=== PATIENT | male | born 1995 | race Caucasian/White ===

== ENCOUNTER 2020-12-10 23:02 | Emergency (ER) | payer OTHER ==
[2020-12-10 23:40] LABS: BASOPHILS # (AUTO) 0.1 10^3/uL (0.0-0.1); BASOPHILS % (AUTO) 0.9 %; EOSINOPHILS # (AUTO) 0.5 10^3/uL (0.0-0.7); EOSINOPHILS % (AUTO) 6.6 %; HCT - HEMATOCRIT 44.1 % (42.0-52.0); LYMPHOCYTES # (AUTO) 1.8 10^3/uL (1.5-3.5); LYMPHOCYTES % (AUTO) 22.7 %; MEAN CORPUSCULAR HEMOGLOBIN 29.1 pg (27.0-31.0); MEAN CORPUSCULAR VOLUME 85.5 fL (80.0-94.0); MEAN PLATELET VOLUME 10.3 fL (7.4-11.4); MONOCYTES # (AUTO) 0.7 10^3/uL (0.0-1.0); MONOCYTES % (AUTO) 8.9 %; NEUTROPHILS # (AUTO) 4.8 10^3/uL (1.5-6.6); NEUTROPHILS % (AUTO) 60.6 %; PLT - PLATELET COUNT 277 10^3/uL (130-450); RED BLOOD COUNT 5.16 10^6/uL (4.70-6.10); RED CELL DISTRIBUTION WIDTH 11.9 % (12.0-15.0)
--- NOTE | 2020-12-10 23:44 | ED Physician Documentation ---
PD HPI CHEST PAIN - Stated complaint Stated Complaint: CP - Chief complaint Chief Complaint: Cardiac - History obtained from History obtained from: Patient - History of Present Illness Timing - onset: How many days ago (3) Timing - duration: Days Timing - details: Gradual onset, Waxing and waning Quality: Pressure, Pain Location: Left chest Radiation: Other (does not radiate) Improved by: Nothing Worsened by: Inspiration Associated symptoms: Shortness of air (mild), General Weakness. No: Diaphoresis, Nausea, Vomiting, Palpitations, Cough Similar symptoms before: Has not had sx before Recently seen: Not recently seen - Additional information Additional information: c/o left-sided chest pressure and pain associated with generalized weakness, fatigue, and mild shortness of breath. These symptoms started 3 days ago and have no ameliorating factors. The chest pain has a pleuritic component. Denies leg swelling. He had his first dose of COVID vaccination 3 days ago. He does not know which vaccination, but he says it was the first of two doses Review of Systems Constitutional: reports: Fatigue. denies: Fever, Chills, Sweats Cardiac: reports: Chest pain / pressure. denies: Palpitations, Pedal edema, Calf pain Respiratory: reports: Dyspnea (mild). denies: Cough, Hemoptysis, Wheezing GI: reports: Reviewed and negative Musculoskeletal: denies: Extremity swelling Neurologic: reports: Generalized weakness PD PAST MEDICAL HISTORY - Past Medical History Past Medical History: No - Allergies Allergies/Adverse Reactions: Allergies Allergy/AdvReac Type Severity Reaction Status Date / Time No Known Drug Allergies Allergy Verified 12/10/20 23:05 PD ED PE NORMAL - Vitals Vital signs reviewed: Yes - General General: Alert and oriented X 3, No acute distress, Well developed/nourished - Neck Neck: Supple, no meningeal sign - Cardiac Cardiac: RRR, No murmur, No gallop, No rub - Respiratory Respiratory: No respiratory distress, Clear bilaterally - Abdomen Abdomen: Soft, Non tender - Derm Derm: Normal color, Warm and dry - Extremities Extremities: No edema Results - Vitals Vitals: Vital Signs - 24 hr 12/10/20 12/11/20 12/11/20 23:05 01:10 02:38 Temperature 36.5 C 37.1 C Heart Rate 79 68 89 Respiratory 16 20 20 Rate Blood Pressure 158/82 H 145/98 H 148/64 H O2 Saturation 100 95 99 Oxygen O2 Source Room air - Labs Labs: Laboratory Tests 12/10/20 12/10/20 12/10/20 23:31 23:31 23:31 WBC 8.0 RBC 5.16 Hgb 15.0 Hct 44.1 MCV 85.5 MCH 29.1 MCHC 34.0 RDW 11.9 L Plt Count 277 MPV 10.3 Neut # (Auto) 4.8 Lymph # (Auto) 1.8 [place] # (Auto) 0.7 Eos # (Auto) 0.5 Baso # (Auto) 0.1 Absolute Nucleated RBC 0.00 Nucleated RBC % 0.0 Sodium 136 Potassium 3.4 L Chloride 98 L Carbon Dioxide 24 Anion Gap 14.0 H BUN 20 Creatinine 1.3 H Estimated GFR (MDRD) 68 L Glucose 90 Calcium 9.2 Total Bilirubin 0.9 AST 27 ALT 22 Alkaline Phosphatase 68 Troponin I High Sens 25.7 H* Total Protein 7.6 Albumin 4.7 Globulin 2.9 Albumin/Globulin Ratio 1.6 Lipase 30 - Rads (name of study) chest xray Radiology: Prelim report reviewed, See rad report PD MEDICAL DECISION MAKING - ED course Complexity details: reviewed results, re-evaluated patient, considered differential, d/w patient ED course: presents with left-sided chest pain x 3 days, pleuritic component. Mild dyspnea which is only noted on ROS (not offered by patient as part of HPI). He also endorses fatigue, generalized weakness x 3 days. Tonight's tests show minimal hypokalemia and mildly elevated creatinine with normal BUN. EKG does not demonstrate any acute nor concerning abnormalities. He has a minimally elevated troponin which, given his age and lack of risk factors for CAD, is likely incidental (ACS is not suspected given EKG findings, age, and lack of cardiac risk factors). CXR is unremarkable. Given the pleuritic component of his chest pain and reported mild dyspnea, CT chest with IV contrast performed. No PE nor pneumothorax on CT. There are multiple pulmonary nodules measuring up to 4mm; this is again likely an incidental finding and can be reevaluated in outpatient setting. Results d/w patient and he is instructed to return if worse, but to fo llow up with primary care provider next available appointment even if symptoms have resolved. Departure - Departure Disposition: 01 Home, Self Care Clinical Impression: Chest pain Condition: Good Instructions: ED Chest Pain Atypical Unkn Cause Follow-Up: ABHILASH Elliott [Provider Group] Comments: You had some abnormalities for which you should be reevaluated by your primary care provider. Your potassium is (minimally) below the normal range and your kidney test (creatinine) is minimally above the normal range. Additionally, the CT of your chest shows multiple, very small nodules. These are likely an incidental finding (not causing your symptoms), but should be reevaluated by your primary care provider. Further testing might be necessary. Discharge Date/Time: 12/11/20 02:46
[2020-12-10 23:50] LABS: ALBUMIN 4.7 g/dL (3.2-5.5); ALBUMIN/GLOBULIN RATIO 1.6 (1.0-2.2); BILIRUBIN,TOTAL 0.9 mg/dL (0.2-1.0); CALCIUM 9.2 mg/dL (8.5-10.3); CREATININE 1.3 mg/dL (0.6-1.2); POTASSIUM 3.4 mmol/L (3.5-5.0); TOTAL PROTEIN 7.6 g/dL (6.7-8.2)
[2020-12-11] MEDS ORDERED: SODIUM CHLORIDE 0.9% 1,000 ML IV STA (00:13)
[2020-12-11] MEDS ORDERED: IOPAMIDOL-300 100 ML VIAL ONE (00:20)
[2020-12-11] MEDS ORDERED: IOPAMIDOL-300 100 ML VIAL IVP ONE (01:10)
[2020-12-11 02:46] VITALS: BP 148/64
--- NOTE | 2020-12-11 07:52 | XRAY Report ---
PROCEDURE: Chest 1 View X-Ray INDICATIONS: Chest pain TECHNIQUE: One view of the chest was acquired. COMPARISON: Subsequent CT pulmonary angiogram 12/11/2020. FINDINGS: Surgical changes and devices: None. Lungs and pleura: No pleural effusions or pneumothorax. Lungs appear clear. Mediastinum: Mediastinal contours appear normal. Heart size is normal. Bones and chest wall: No suspicious bony lesions. Overlying soft tissues appear unremarkable. IMPRESSION: No acute cardiopulmonary abnormality. This report is concordant with the overnight preliminary interpretation. Reviewed by: Lucien Paz MD on 12/11/2020 6:51 AM TYLER Approved by: Lucien Paz MD on 12/11/2020 6:51 AM TYLER Station ID: [id number]
--- NOTE | 2020-12-11 08:01 | CT Report ---
PROCEDURE: ANGIO CHEST WITH CONTRAST INDICATIONS: left chest pain, pleuritic CONTRAST: IV CONTRAST: Isovue 300 ml: 100 PO CONTRAST: *NO PO CONTRAST TECHNIQUE: After the administration of intravenous contrast, images were acquired from the pulmonary apices to t he posterior costophrenic angles. 3-dimensional maximum intensity projection (MIP) coronal and sagit mitch reformats were then acquired through the thorax. For radiation dose reduction, the following was used: automated exposure control, adjustment of mA and/or kV according to patient size. COMPARISON: CXR earlier today. FINDINGS: Image quality: Good. Contrast bolus is delayed for optimal opacification of the pulmonary arteries. Pulmonary arteries: Pulmonary arteries are normal in size, and demonstrate no intraluminal filling d efects to suggest central pulmonary embolism. Lungs and pleura: No consolidation. Subtle groundglass nodular opacity in the left upper lobe, (7/117 , 119). A few small pulmonary nodules measuring is 0.4 cm or less. For example right upper lobe 0.4 c m, (7/123). Right lower lobe subpleural 0.3 cm, (7/208). No pleural effusions or pneumothorax. Cent ral and peripheral airways are patent. Mediastinum: Heart size is normal, without pericardial effusion. No mediastinal or hilar adenopathy . Thoracic aorta is normal in caliber and enhancement. No acute aortic syndrome. No aortic dissectio n. Esophagus is normal in caliber, without hiatal hernia. Bones and chest wall: No suspicious bony lesions. Ribs and thoracic spine appear intact throughout. No axillary or supraclavicular adenopathy. The thyroid is normal in size and there are no incident al findings. Abdomen: Visualized upper abdominal solid organs appear normal in the early arterial phase of enhanc ement. IMPRESSION: 1. No central pulmonary embolism. No acute aortic syndrome. 2. No pneumothorax. No pleural effusion. 3. A few small pulmonary nodules or nodular opacities measuring 0.4 cm or less. Suspect infectious/in flammatory nodules. This report is concordant with the overnight preliminary interpretation. Reviewed by: Lucien Paz MD on 12/11/2020 7:00 AM TYLER Approved by: Lucien Paz MD on 12/11/2020 7:00 AM TYLER Station ID: [id number]
== END 2020-12-11 02:46 | disposition home or self-care (01) ==
LOC: ED 23:02
DX: R07.89 Other chest pain (principal)
CPT/HCPCS: 36415; 71045; 71275; 80053; 83690; 84484; 85025; 93005; 96360; 99284; Q9967

== ENCOUNTER 2020-12-14 20:56 | Emergency (ER) | payer OTHER ==
[2020-12-14] MEDS ORDERED: DEXAMETHASONE 10 MG/ML VIAL PO STA (21:33)
[2020-12-14] MEDS ORDERED: CHERRY SYRUP 10 ML UDC PO ONE (21:33)
--- NOTE | 2020-12-14 21:37 | ED Physician Documentation ---
PD HPI CHEST PAIN - Stated complaint Stated Complaint: FATIGUE,ABD BURNING,CP/SOA - Chief complaint Chief Complaint: General - History obtained from History obtained from: Patient - History of Present Illness Timing - onset: How many days ago (4) Timing - onset during: Rest, Light activity Timing - duration: Days (4) Timing - details: Gradual onset, Still present, Waxing and waning Quality: Aching. 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 He is uncertain which vaccine he received Thinks it might be Pfizer.Since that time he has had some issue with some left-sided chest pain and shortness of breath. He indicates his pain is worse if he is exerting himself is worse if he takes a deep breath and he feels fatigued. He has coughed up some blood 4 days ago. He is not having persistent cough he feels hot but he has not had a fever. PD PAST MEDICAL HISTORY - Past Medical History Past Medical History: No Cardiovascular: None Respiratory: None Neuro: None Endocrine/Autoimmune: None GI: None : None HEENT: None Psych: None Musculoskeletal: None Derm: None - Past Surgical History Past Surgical History: No - Present Medications Home Medications: Ambulatory Orders Medication Instructions Recorded Confirmed No Known Home Medications 12/14/20 12/14/20 - Allergies Allergies/Adverse Reactions: Allergies Allergy/AdvReac Type Severity Reaction Status Date / Time No Known Drug Allergies Allergy Verified 12/14/20 21:12 - Social History Does the pt smoke?: No Smoking Status: Never smoker Does the pt drink ETOH?: Yes Does the pt have substance abuse?: No - Immunizations Immunizations are current?: Yes - POLST Patient has POLST: No PD ED PE NORMAL - Vitals Vital signs reviewed: Yes (hypertensive) - General General: Alert and oriented X 3, No acute distress, Well developed/nourished - HEENT HEENT: Atraumatic, PERRL, EOMI, Ears normal, Moist mucous membranes, Pharynx benign, Dentition benign - Neck Neck: Supple, no meningeal sign, No bony TTP - Cardiac Cardiac: RRR, No murmur - Respiratory Respiratory: No respiratory distress, Clear bilaterally - Abdomen Abdomen: Normal bowel sounds, Soft, Non tender, Non distended, No organomegaly - Back Back: No CVA TTP, No spinal TTP - Derm Derm: Normal color, Warm and dry, No rash - Extremities Extremities: No deformity, No edema - Neuro Neuro: Alert and oriented X 3, 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, No motor deficit, No sensory deficit, Normal speech Eye Opening: Spontaneous Motor: Obeys Commands Verbal: Oriented GCS Score: 15 - Psych Psych: Normal mood, Normal affect Results - Vitals Vitals: Vital Signs - 24 hr 12/14/20 12/14/20 20:59 21:11 Temperature 36.2 C L 36.2 C L Heart Rate 83 83 Respiratory 14 14 Rate Blood Pressure 147/81 H 147/81 H O2 Saturation 100 100 Oxygen O2 Source Room air - EKG (time done) 2102 Rate: Rate (enter#) (84) Rhythm: NSR Intervals: Other (short CT borderline) Compare to prior EKG: Unchanged from prior EKG (12-10-20 no changes) Computer interpretation: Agree with computer - Labs Labs: Laboratory Tests 12/14/20 12/14/20 12/14/20 21:36 21:36 21:36 WBC 9.5 RBC 4.88 Hgb 14.2 Hct 41.8 L MCV 85.7 MCH 29.1 MCHC 34.0 RDW 12.2 Plt Count 280 MPV 10.1 Neut # (Auto) 6.2 Lymph # (Auto) 2.2 [place] # (Auto) 0.6 Eos # (Auto) 0.5 Baso # (Auto) 0.1 Absolute Nucleated RBC 0.00 Nucleated RBC % 0.0 Sodium 140 Potassium 3.3 L Chloride 99 L Carbon Dioxide 30 Anion Gap 11.0 BUN 19 Creatinine 1.2 Estimated GFR (MDRD) 74 L Glucose 107 H Calcium 9.5 Total Bilirubin 0.6 AST 24 ALT 25 Alkaline Phosphatase 73 Troponin I High Sens 8.6 Total Protein 7.8 Albumin 4.7 Globulin 3.1 Albumin/Globulin Ratio 1.5 Lipase 32 Nasal Adenovirus (PCR) Nasal B. parapertussis DNA (PCR) Nasal Coronavir 229E PCR Nasal Coronavir HKU1 PCR Nasal Coronavir NL63 PCR Nasal Coronavir OC43 PCR Nasal Enterovir/Rhinovir PCR Nasal Influenza B PCR Nasal Influenza A PCR Nasal Parainfluen 1 PCR Nasal Parainfluen 2 PCR Nasal Parainfluen 3 PCR Nasal Parainfluen 4 PCR Nasal RSV (PCR) Nasal B.pertussis DNA PCR Nasal C.pneumoniae (PCR) Zoltan Human Metapneumo PCR Nasal M.pneumoniae (PCR) Nasal SARS-CoV-2 (PCR) 12/14/20 21:40 WBC RBC Hgb Hct MCV MCH MCHC RDW Plt Count MPV Neut # (Auto) Lymph # (Auto) [place] # (Auto) Eos # (Auto) Baso # (Auto) Absolute Nucleated RBC Nucleated RBC % Sodium Potassium Chloride Carbon Dioxide Anion Gap BUN Creatinine Estimated GFR (MDRD) Glucose Calcium Total Bilirubin AST ALT Alkaline Phosphatase Troponin I High Sens Total Protein Albumin Globulin Albumin/Globulin Ratio Lipase Nasal Adenovirus (PCR) NOT DETECTED Nasal B. parapertussis DNA (PCR) NOT DETECTED Nasal Coronavir 229E PCR NOT DETECTED Nasal Coronavir HKU1 PCR NOT DETECTED Nasal Coronavir NL63 PCR NOT DETECTED Nasal Coronavir OC43 PCR NOT DETECTED Nasal Enterovir/Rhinovir PCR NOT DETECTED Nasal Influenza B PCR NOT DETECTED Nasal Influenza A PCR NOT DETECTED Nasal Parainfluen 1 PCR NOT DETECTED Nasal Parainfluen 2 PCR NOT DETECTED Nasal Parainfluen 3 PCR NOT DETECTED Nasal Parainfluen 4 PCR NOT DETECTED Nasal RSV (PCR) NOT DETECTED Nasal B.pertussis DNA PCR NOT DETECTED Nasal C.pneumoniae (PCR) NOT DETECTED Zoltan Human Metapneumo PCR NOT DETECTED Nasal M.pneumoniae (PCR) NOT DETECTED Nasal SARS-CoV-2 (PCR) NOT DETECTED - Rads (name of study) chest Radiology: Prelim report reviewed (Impression: 1. No active process. Negative heart and lungs.), EMP read indepedently, See rad report PD MEDICAL DECISION MAKING - ED course Complexity details: reviewed old records, reviewed results, re-evaluated patient, considered differential, d/w patient ED course: 25-year-old male feeling fatigued short of breath and with chest pain after receiving his second dose of vaccination presents to the emergency department fo r the second time with persistent symptoms. On examination the patient appears otherwise well he has a heart rate of 84 and electrocardiogram showing a normal sinus rhythm. Normal ST segments. Here in the emergency department we will repeat his studies from the previous visit, check the PCR and administer dexamethasone. The conclusion of visit the patient feels normal. I suspect this is related to the use of dexamethasone. Departure - Departure Disposition: 01 Home, Self Care Clinical Impression: Adverse effect of COVID-19 vaccine Condition: Stable Instructions: ED Drug React Adverse Other Follow-Up: SHORTY HODGES DO [Primary Care Provider] - Comments: The recommendation for symptoms related to the Covid vaccine is to take Tylenol as often as every 4 hours and increase your level of fluids. Get plenty of rest and continue to be active.
[2020-12-14 21:40] LABS: BASOPHILS # (AUTO) 0.1 10^3/uL (0.0-0.1); BASOPHILS % (AUTO) 0.7 %; EOSINOPHILS # (AUTO) 0.5 10^3/uL (0.0-0.7); EOSINOPHILS % (AUTO) 5.2 %; HCT - HEMATOCRIT 41.8 % (42.0-52.0); HGB - HEMOGLOBIN 14.2 g/dL (14.0-18.0); LYMPHOCYTES # (AUTO) 2.2 10^3/uL (1.5-3.5); LYMPHOCYTES % (AUTO) 23.1 %; MEAN CORPUSCULAR HEMOGLOBIN 29.1 pg (27.0-31.0); MEAN CORPUSCULAR VOLUME 85.7 fL (80.0-94.0); MEAN PLATELET VOLUME 10.1 fL (7.4-11.4); MONOCYTES # (AUTO) 0.6 10^3/uL (0.0-1.0); MONOCYTES % (AUTO) 6.1 %; NEUTROPHILS # (AUTO) 6.2 10^3/uL (1.5-6.6); NEUTROPHILS % (AUTO) 64.7 %; PLT - PLATELET COUNT 280 10^3/uL (130-450); RED BLOOD COUNT 4.88 10^6/uL (4.70-6.10); RED CELL DISTRIBUTION WIDTH 12.2 % (12.0-15.0); WHITE BLOOD COUNT 9.5 x10^3/uL (4.8-10.8)
[2020-12-14 21:55] LABS: ALBUMIN 4.7 g/dL (3.2-5.5); ALBUMIN/GLOBULIN RATIO 1.5 (1.0-2.2); BILIRUBIN,TOTAL 0.6 mg/dL (0.2-1.0); CALCIUM 9.5 mg/dL (8.5-10.3); CREATININE 1.2 mg/dL (0.6-1.2); POTASSIUM 3.3 mmol/L (3.5-5.0); TOTAL PROTEIN 7.8 g/dL (6.7-8.2)
[2020-12-14 23:20] LABS: B. PARAPERTUSSIS- RESP PCR PAN NOT DETECTED; B. PERTUSSIS- RESP PCR PANEL NOT DETECTED; C. PNEUMONIAE- RESP PCR PANEL NOT DETECTED; CORONAVIRUS 229E-RESP PCR NOT DETECTED; CORONAVIRUS HKU1-RESP PCR NOT DETECTED; CORONAVIRUS NL63-RESP PCR NOT DETECTED; CORONAVIRUS OC43-RESP PCR NOT DETECTED; HUMAN METAPNEUMOVIRUS NOT DETECTED; INFLUENZA A- RESP PCR PANEL NOT DETECTED; INFLUENZA B - RESP PCR PANEL NOT DETECTED; M. PNEUMONIAE- RESP PCR PANEL NOT DETECTED; PARAINFLUENZA VIRUS 1 NOT DETECTED; PARAINFLUENZA VIRUS 2 NOT DETECTED; PARAINFLUENZA VIRUS 3 NOT DETECTED; PARAINFLUENZA VIRUS 4 NOT DETECTED; RHINOVIRUS/ENTEROVIRUS NOT DETECTED; RSV- RESP PCR PANEL NOT DETECTED; SARS-CoV-2 -RESP PCR PANEL NOT DETECTED
[2020-12-15 00:24] VITALS: BP 135/72
--- NOTE | 2020-12-15 12:50 | XRAY Report ---
PROCEDURE: Chest 1 View X-Ray INDICATIONS: chest pain TECHNIQUE: One view of the chest was acquired. COMPARISON: Chest x-ray 12/10/2020 FINDINGS: Surgical changes and devices: None. Lungs and pleura: No pleural effusions or pneumothorax. Lungs are clear. Mediastinum: Mediastinal contours appear normal. Heart size is normal. Bones and chest wall: No suspicious bony lesions. Overlying soft tissues appear unremarkable. IMPRESSION: No acute pulmonary process. The above findings are concordant with preliminary report. Reviewed by: Marycruz Wilson MD on 12/15/2020 12:49 PM PDT Approved by: Marycruz Wilson MD on 12/15/2020 12:49 PM PDT Station ID: [id number]
== END 2020-12-15 00:23 | disposition home or self-care (01) ==
LOC: ED 20:56
DX: R07.89 Other chest pain (principal); R06.02 Shortness of breath; R53.83 Other fatigue; T50.B95A Adverse effect of other viral vaccines, initial encounter; Z20.822 Contact with and (suspected) exposure to COVID-19
CPT/HCPCS: 0202U; 36415; 71045; 80053; 83690; 84484; 85025; 93005; 99283; 99284; A9270

== ENCOUNTER 2021-04-12 08:00 | Outpatient (CLI) | payer OTHER | END 2021-04-12 23:59 | LOC: LAB 08:00 | PROVIDERS: ATTEND Family Medicine | DX: R07.0 Pain in throat (principal); M79.10 Myalgia, unspecified site; Z20.822 Contact with and (suspected) exposure to COVID-19 | CPT/HCPCS: 87275; 87276 ==

== ENCOUNTER 2021-04-12 22:51 | Emergency (ER) | payer OTHER ==
[2021-04-12] MEDS ORDERED: ACETAMINOPHEN 325 MG TABLET PO STA (23:17)
[2021-04-13 01:48] LABS: B. PARAPERTUSSIS- RESP PCR PAN NOT DETECTED; B. PERTUSSIS- RESP PCR PANEL NOT DETECTED; C. PNEUMONIAE- RESP PCR PANEL NOT DETECTED; CORONAVIRUS 229E-RESP PCR NOT DETECTED; CORONAVIRUS HKU1-RESP PCR NOT DETECTED; CORONAVIRUS NL63-RESP PCR NOT DETECTED; CORONAVIRUS OC43-RESP PCR NOT DETECTED; HUMAN METAPNEUMOVIRUS NOT DETECTED; INFLUENZA A- RESP PCR PANEL NOT DETECTED; INFLUENZA B - RESP PCR PANEL NOT DETECTED; M. PNEUMONIAE- RESP PCR PANEL NOT DETECTED; PARAINFLUENZA VIRUS 1 NOT DETECTED; PARAINFLUENZA VIRUS 2 NOT DETECTED; PARAINFLUENZA VIRUS 3 NOT DETECTED; PARAINFLUENZA VIRUS 4 NOT DETECTED; RHINOVIRUS/ENTEROVIRUS NOT DETECTED; RSV- RESP PCR PANEL NOT DETECTED; SARS-CoV-2 -RESP PCR PANEL NOT DETECTED
--- NOTE | 2021-04-13 02:31 | ED Physician Documentation ---
History of Present Illness - Stated complaint Stated Complaint: SOA,BACK/CHEST PX - Chief complaint Chief Complaint: Resp - History obtained from History obtained from: Patient - Additonal information Additional information: 25yM, previously healthy p/w cough, sore throat, progressive dyspnea, fever/chills X 3 days. he was seen 04/12 and given amox rx for strep throat. presents today for worsening soa. denies hemoptysis, n/v/d cp or leg swelling Review of Systems Ten Systems: 10 systems reviewed and negative Constitutional: reports: Fever, Chills, Myalgias, Fatigue Throat: reports: Sore throat Cardiac: denies: Chest pain / pressure Respiratory: reports: Dyspnea, Cough PD PAST MEDICAL HISTORY - Past Medical History Past Medical History: Yes Cardiovascular: None Respiratory: None Neuro: None Endocrine/Autoimmune: None GI: None : None HEENT: None Psych: None Musculoskeletal: None Derm: None - Past Surgical History Past Surgical History: No - Present Medications Home Medications: Ambulatory Orders Medication Instructions Recorded Confirmed No Known Home Medications 12/14/20 04/12/21 - Allergies Allergies/Adverse Reactions: Allergies Allergy/AdvReac Type Severity Reaction Status Date / Time No Known Drug Allergies Allergy Verified 04/12/21 23:13 - Social History Does the pt smoke?: No Smoking Status: Never smoker Does the pt drink ETOH?: Yes Does the pt have substance abuse?: No - Immunizations Immunizations are current?: Yes - POLST Patient has POLST: No PD ED PE NORMAL - Vitals Vital signs reviewed: Yes - General General: Alert and oriented X 3, No acute distress, Well developed/nourished, Other (sleeping comfortably but easily arousable) - HEENT HEENT: Atraumatic, PERRL, EOMI, Other (mild posterior pharyngeal erythema) - Neck Neck: Supple, no meningeal sign - Cardiac Cardiac: RRR - Respiratory Respiratory: No respiratory distress, Clear bilaterally - Abdomen Abdomen: Non tender, Non distended - Derm Derm: Normal color, Warm and dry - Extremities Extremities: No deformity - Neuro Neuro: Alert and oriented X 3, No motor deficit, No sensory deficit - Psych Psych: Normal mood, Normal affect Results - Vitals Vitals: Vital Signs - 24 hr 04/12/21 04/13/21 23:10 01:01 Temperature 38.0 C H 37.2 C Heart Rate 101 H 84 Respiratory 17 28 H Rate Blood Pressure 151/78 H 126/64 O2 Saturation 98 97 Oxygen O2 Source Room air - Labs Labs: Laboratory Tests 04/13/21 00:50 Nasal Adenovirus (PCR) NOT DETECTED Nasal B. parapertussis DNA (PCR) NOT DETECTED Nasal Coronavir 229E PCR NOT DETECTED Nasal Coronavir HKU1 PCR NOT DETECTED Nasal Coronavir NL63 PCR NOT DETECTED Nasal Coronavir OC43 PCR NOT DETECTED Nasal Enterovir/Rhinovir PCR NOT DETECTED Nasal Influenza B PCR NOT DETECTED Nasal Influenza A PCR NOT DETECTED Nasal Parainfluen 1 PCR NOT DETECTED Nasal Parainfluen 2 PCR NOT DETECTED Nasal Parainfluen 3 PCR NOT DETECTED Nasal Parainfluen 4 PCR NOT DETECTED Nasal RSV (PCR) NOT DETECTED Nasal B.pertussis DNA PCR NOT DETECTED Nasal C.pneumoniae (PCR) NOT DETECTED Zoltan Human Metapneumo PCR NOT DETECTED Nasal M.pneumoniae (PCR) NOT DETECTED Nasal SARS-CoV-2 (PCR) NOT DETECTED PD MEDICAL DECISION MAKING - ED course ED course: 25yM p/w symptoms concerning for acute viral infection, but with negative RVP. He does state he tested positive for strep throat and is on amox. encouraged him to finish the antibiotic course but to consider being retested for covid at the 5 day alisha, since he has had only 3 days of symptoms and this could be a false negative. strict return precautions discussed. symptomatic care discussed. plan to f/u with pmd. Departure - Departure Disposition: 01 Home, Self Care Clinical Impression: Cough, Shortness of breath, Strep throat, Upper respiratory tract infection Condition: Good Instructions: ED Dyspnea Shortness of Breath Comments: You were seen in the emergency department for evaluation of shortness of breath and cough. Your covid test came back negative, but you should get retested in a few days if you are still having symptoms. Your vital signs and exam were normal. Please continue your antibiotics and return to the ED if you have new or worsening symptoms or other concerns.
[2021-04-13 02:37] VITALS: BP 125/62
== END 2021-04-13 02:45 | disposition home or self-care (01) ==
LOC: ED 22:51
DX: J02.0 Streptococcal pharyngitis (principal); R05.9 Cough, unspecified; R06.02 Shortness of breath; Z20.822 Contact with and (suspected) exposure to COVID-19
CPT/HCPCS: 0202U; 93005; 99282; 99283; A9270; 87275; 87276

== ENCOUNTER 2021-05-09 01:14 | Emergency (ER) | payer OTHER ==
[2021-05-09] MEDS ORDERED: KETOROLAC 30 MG/ML VIAL IM STA (01:37)
[2021-05-09] MEDS ORDERED: oxyCODONE 5 MG TABLET PO STA (01:37)
[2021-05-09] MEDS ORDERED: oxyCODONE/ACET 5/325 Prepack 4 PO STA (01:39)
--- NOTE | 2021-05-09 01:40 | ED Physician Documentation ---
PD HPI LOWER EXT INJURY - Stated complaint Stated Complaint: LEFT KNEE SWELLING, LEFT FOOT PAIN - Chief complaint Chief Complaint: Ext Problem - History obtained from History obtained from: Patient - History of Present Illness PD HPI LOW EXT INJURY LOCATION: Left, Knee, Other (and dorsum right foot.) Type of injury: No: Fall, Twist Timing - duration: Days (2) Timing - details: Gradual onset, Still present Improved by: No: Rest, Meds (took Ibuprofen at home) Worsened by: Moving, Palpating Associated symptoms: Swelling. No: Weakness, Numbness Recently seen: Clinic (2 days ago (Sunday) at [facility] for some penile irritation and was tested for GC/chlamydia and given IM Rocephin and PO Zithromax (5 days course). Working out hard at gym that day and the next and had onset of left knee and right foot swelling/pain that has increased.) Review of Systems Constitutional: denies: Fever, Chills, Myalgias Eyes: reports: Discharge (he states some matting of eye yesterday morning. No ongoing discharge. Does not wear contacts, just glasses.), Irritation Nose: denies: Rhinorrhea / runny nose, Congestion Throat: denies: Sore throat GI: denies: Abdominal Pain, Nausea, Vomiting : reports: Dysuria (several days ago and seen in [facility] with STI test obtained. Expecting results tomorrow.), Frequency. denies: Discharge Skin: denies: Rash, Lesions Neurologic: denies: Generalized weakness, Headache PD PAST MEDICAL HISTORY - Past Medical History Past Medical History: No Cardiovascular: None Respiratory: None Neuro: None Endocrine/Autoimmune: None GI: None : None HEENT: None Psych: None Musculoskeletal: None, Other (denies history of gout) Derm: None - Past Surgical History Past Surgical History: No - Present Medications Home Medications: Ambulatory Orders Medication Instructions Recorded Confirmed Naproxen 500 mg PO BID #20 tab.sr 05/09/21 Oxycodone HCl/Acetaminophen 1 each PO Q6H PRN #15 tablet 05/09/21 [Percocet 5-325 mg Tablet] - Allergies Allergies/Adverse Reactions: Allergies Allergy/AdvReac Type Severity Reaction Status Date / Time No Known Drug Allergies Allergy Verified 05/09/21 01:22 - Living Situation Living Arrangement: reports: At home - Social History Does the pt smoke?: No Smoking Status: Never smoker Does the pt drink ETOH?: Yes ETOH Use: Other (he states drinks regularly, usually beer, but none for the past 4 days. Denies withdrawal symtpoms.) Does the pt have substance abuse?: No - Immunizations Immunizations are current?: Yes - POLST Patient has POLST: No PD ED PE NORMAL - Vitals Vital signs reviewed: Yes - General General: Alert and oriented X 3, Well developed/nourished, Other (seems in pain due to knee, with any motion) - HEENT HEENT: PERRL, EOMI, Other (mild hyperemia both eyes, without conjunctival redness nor discharge. ) - Neck Neck: Supple, no meningeal sign, No adenopathy - Cardiac Cardiac: RRR, No murmur - Respiratory Respiratory: Clear bilaterally - Derm Derm: Normal color, Warm and dry - Extremities Extremities: No calf tenderness / cord, Other (right foot with swelling and mild redness dorsum. Very tender. No skin lesions. Great toe base normal. Left knee with large effusion, no redness nor warmth. Generally markedly tender. Ligament testing unobtainable due to tenderness. ) - Neuro Neuro: Alert and oriented X 3, No motor deficit, No sensory deficit Results - Vitals Vitals: Vital Signs - 24 hr 05/09/21 01:19 Temperature 36.9 C Heart Rate 88 Respiratory 17 Rate Blood Pressure 146/87 H O2 Saturation 100 Oxygen O2 Source Room air - Labs Labs: Microbiology 05/09/21 02:26 Gram Stain - Final Synovial Fluid Laboratory Tests 05/09/21 05/09/21 02:26 02:26 Fluid Source SYNOVIAL Fluid Color YELLOW Fluid Clarity CLEAR Fluid WBC 3310 Fluid RBC 3000 Fluid Crystals NONE SEEN - Rads (name of study) left knee Radiology: Prelim report reviewed (general arthritic changes. faint lucency lateral femoral condyle, possible osteocondral defect. ), See rad report right foot Radiology: Prelim report reviewed (no bony abnormality), See rad report Procedures - Arthrocentesis Joint: Knee, Left Preparation: Consent obtained (verbal), Sterile prep and drape, Other (left medial knee approach.) Anesthesia: Lidocaine 1% Fluid: Sent for cell count, Cloudy, Sent for crystals, Sent for culture, Fluid obtained - cc (38), Sent for gram stain Aftercare: Dressing applied, No complications, Patient tolerated well PD MEDICAL DECISION MAKING - ED course Complexity details: reviewed results (RBC 3K, WBC 3K indicating inflammatory or septic arthritis. Gram stain without organisms. Culture pending. I looked for his STI results, but not in the lab results, so presume results not received as yet. ), re-evaluated patient (feels improved pain in knee after arthrocentesis and meds. ), considered differential (consider overuse injury with pain/swelling, but interesting to be knee and foot. Consider new onset gout subsequent to minor injury. Recently seen for urinary symptoms and GC/Chlamydia test pending. Knee does not appear septic. Can tap joint to decrease symptoms and also for diagnostics. ), d/w patient Departure - Departure Disposition: 01 Home, Self Care Clinical Impression: Knee effusion, left Knee pain, acute Qualifiers: Laterality: left Qualified Code(s): M25.562 - Pain in left knee Acute foot pain Qualifiers: Laterality: right Qualified Code(s): M79.671 - Pain in right foot Condition: Stable Record reviewed to determine appropriate education?: Yes Instructions: ED Effusion Knee Follow-Up: LEANN BECKER MD [Primary Care Provider] - Prescriptions: Naproxen 500 mg PO BID #20 tab.sr Oxycodone HCl/Acetaminophen [Percocet 5-325 mg Tablet] 1 each PO Q6H PRN #15 tablet PRN Reason: pain Comments: Considerations for your symptoms would be overuse inflammation of the knee and foot from working out. This could have led to tendinitis of the foot and some inflammation of the ligaments or cartilage in the knee with subsequent swelling. Other consideration would be inflammation in those joints from uric acid crystals or calcium oxalate (gout or pseudogout). The testing at the lab off of the fluid should help distinguish if this looks like gout. The medication reference that I use called Epocrates does not list joint inflammation as a side effect from the antibiotic you are taking (Zithromax). The knee joint does not look red or feel hot and the fluid out did not look purulent per se so it does not seem like a joint infection. We will culture the fluid from the knee to see if there is any growth of bacteria. At this point I would suggest resting elevate and Alexys wrap for the knee and foot to help reduce swelling. Crutches to have partial to no weightbearing on the left knee to help reduce pain. Obviously that will still put pressure on the right foot so minimal walking and being off work for 2 to 3 days makes sense. Naproxen anti-inflammatory twice daily with food for the next week. To that add Tylenol every 4 hours if needed for pain or oxycodone/acetaminophen instead if needed for worse pain. Follow-up with your primary care in the next couple of days for recheck and also a follow-up on your recent other tests. They can also follow-up on the synovial fluid test we initiated tonight. We would call you with any significant findings or positive cultures but still good to have your primary care follow up as well. I transmitted the prescriptions to the [facility] pharmacy. I am prescribing a short course of narcotic pain medication for you. These are potentially dangerous and addictive medications that should be used carefully. These medications may constipate you. Take an [id number] stool softener such as docusate twice daily with plenty of water while taking these medications. If you go 24 hours without a bowel movement, take [id number] MiraLAX, per package instructions. Do not drink or drive while taking these medications. If you received narcotic or sedating medications while in the emergency department do not drive for 24 hours. Store this medication in a safe, secure place and out of reach of children. It is a violation of federal law to give or sell this medication to another person or to use in a manner other than prescribed. The ED will not refill narcotic prescriptions, including prescriptions lost or stolen. You can dispose of unwanted medications at the [facility] office or at several pharmacies such as [facility]. Forms: Activity restrictions
[2021-05-09 02:42] LABS: BF CLARITY CLEAR; BF COLOR YELLOW; BF SOURCE SYNOVIAL; CC,BF RBC 3000 /mm^3; CC,BF WBC 3310 /mm^3
[2021-05-09 03:09] LABS: LYMPHOCYTES %,BODY FLUID 63 %; MONOCYTES %,BODY FLUID 17 %; NEUTROPHILS %, BF 20 %
[2021-05-09 03:18] VITALS: BP 141/63
--- NOTE | 2021-05-09 07:59 | XRAY Report ---
PROCEDURE: Foot 3 View RT INDICATIONS: foot pain 2 days after running TECHNIQUE: 3 views of the foot were acquired. COMPARISON: None. FINDINGS: Bones: No fractures or dislocations. No suspicious bony lesions. Soft tissues: No tibiotalar joint effusion. Achilles tendon appears normal. Mild swelling at the d istal plantar soft tissues. No radiopaque foreign body. IMPRESSION: No acute osseous abnormality. Mild swelling at the distal plantar soft tissues. This report is concordant with the overnight preliminary interpretation. Reviewed by: Lucien Paz MD on 05/09/2021 7:58 AM [facility] Approved by: Lucien Paz MD on 05/09/2021 7:58 AM [facility] Station ID: [id number]
--- NOTE | 2021-05-09 08:03 | XRAY Report ---
PROCEDURE: Knee 3 View LT INDICATIONS: knee pain 2 days after running TECHNIQUE: 4 views of the left knee(s) were acquired. COMPARISON: None. FINDINGS: Bones: No fractures or dislocations. No suspicious bony lesions. There is tricompartmental osteophy tosis. Soft tissues: Large suprapatellar joint effusion. No suspicious soft tissue calcifications. IMPRESSION: Moderate tricompartmental osteoarthritis. Early onset. Large joint effusion. Subtle lucency at the lateral femoral condyle articular surface. This could be seen in osteochondral defect. MRI knee would be helpful for further evaluation. This report is concordant with the overnight preliminary interpretation. Reviewed by: Lucien Paz MD on 05/09/2021 8:01 AM [facility] Approved by: Lucien Paz MD on 05/09/2021 8:01 AM [facility] Station ID: [id number]
== END 2021-05-09 03:31 | disposition home or self-care (01) ==
LOC: EDUNIT# → SUPCPDRO 01:14 → ED 01:14
DX: M25.462 Effusion, left knee (principal); M79.671 Pain in right foot
CPT/HCPCS: 20610; 73562; 73630; 87070; 87205; 89051; 89060; 96372; 99282; 99284; A9270; 87081

== ENCOUNTER 2021-05-11 13:59 | Emergency (ER) | payer OTHER ==
[2021-05-11 14:09] VITALS: BP 149/82
[2021-05-11] MEDS ORDERED: CHERRY SYRUP 10 ML UDC PO ONE (14:34)
[2021-05-11] MEDS ORDERED: DEXAMETHASONE 10 MG/ML VIAL PO STA (14:34)
[2021-05-11] MEDS ORDERED: KETOROLAC 60 MG/2 ML VIAL IM STA (14:35)
--- NOTE | 2021-05-11 14:37 | ED Physician Documentation ---
PD HPI LOWER EXT INJURY - Stated complaint Stated Complaint: R KNEE SWELLING - Chief complaint Chief Complaint: Ext Problem - History obtained from History obtained from: Patient - History of Present Illness PD HPI LOW EXT INJURY LOCATION: Right, Left, Knee Type of injury: Other (overuse) Where injury occurred: Street Timing - onset: How many days ago (4) Timing - duration: Days (4) Timing - details: Abrupt onset, Still present Improved by: Rest, Ice, Immobilization Worsened by: Moving, Palpating Associated symptoms: Swelling. No: Weakness, Numbness, Tingling, Discolored Contributing factors: No: Anticoagulated Similar symptoms before: Diagnosis (reactive arthritis) Recently seen: Emergency Dept - Additional information Additional information: 26-year-old male reports that several days ago he went on a 2 mile run followed by a stent on the elliptical and then followed by the treadmill at a intense incline. The following day he developed marked swelling in his left knee. He was seen in the emergency department had fluid removed from the knee with a reactive inflammatory fluid that has been culture negative x2 days. He has some relief with the pain medication but he really feels like he needs an MRI of his knee and he has come to the ED to get this study. Review of Systems Constitutional: denies: Fever Ears: denies: Ear pain Nose: denies: Congestion Throat: denies: Sore throat Respiratory: denies: Cough GI: denies: Vomiting PD PAST MEDICAL HISTORY - Past Medical History Cardiovascular: None Respiratory: None Neuro: None Endocrine/Autoimmune: None GI: None : None HEENT: None Psych: None Musculoskeletal: None, Other (denies history of gout) Derm: None - Past Surgical History Past Surgical History: No - Present Medications Home Medications: Ambulatory Orders Medication Instructions Recorded Confirmed Naproxen 500 mg PO BID #20 tab.sr 05/09/21 Oxycodone HCl/Acetaminophen 1 each PO Q6H PRN #15 tablet 05/09/21 [Percocet 5-325 mg Tablet] Oxycodone HCl/Acetaminophen 1 - 2 each PO Q6H PRN #14 tablet 05/11/21 [Percocet 5-325 mg Tablet] predniSONE [Deltasone] 40 mg PO DAILY 5 Days #10 tablet 05/11/21 - Allergies Allergies/Adverse Reactions: Allergies Allergy/AdvReac Type Severity Reaction Status Date / Time No Known Drug Allergies Allergy Verified 05/11/21 14:08 - Social History Does the pt smoke?: No Smoking Status: Never smoker Does the pt drink ETOH?: Yes Does the pt have substance abuse?: No - Immunizations Immunizations are current?: Yes - POLST Patient has POLST: No PD ED PE NORMAL - Vitals Vital signs reviewed: Yes (tachy and hypertensive ) - General General: Alert and oriented X 3, No acute distress, Well developed/nourished, Other (26y/o male with an ice bag to the left knee and a cardboard splint placed around the right knee. ) - HEENT HEENT: Atraumatic, PERRL, EOMI - Respiratory Respiratory: No respiratory distress - Derm Derm: Normal color, Warm and dry, No rash - Extremities Extremities: No deformity, Other (There is swelling and point tenderness to the medial and lateral joint line to the left knee as well as a palpable effusion that is also tender. Ligaments are stable to testing the patient is able to move the knee but with significant pain. Right knee with less swelling stable. ) - Neuro Neuro: Alert and oriented X 3, swimming pool maintenance 2-12 intact, No motor deficit, No sensory deficit, Normal speech Eye Opening: Spontaneous Motor: Obeys Commands Verbal: Oriented GCS Score: 15 - Psych Psych: Normal mood, Normal affect Results - Vitals Vitals: Vital Signs - 24 hr 05/11/21 14:03 Temperature 36.6 C Heart Rate 107 H Respiratory 16 Rate Blood Pressure 149/82 H O2 Saturation 98 Oxygen O2 Source Room air PD MEDICAL DECISION MAKING - ED course Complexity details: reviewed results, re-evaluated patient, considered differential, d/w patient ED course: 26-year-old male who has a prior history of meniscus injury to both of his knees has excessively used his legs and now has inflammatory synovium. He really feels like he needs to have MRI of his knee this was ordered and they were unable to provide the service today as the intensive care unit had a patient requiring MRI. The patient was disappointed in this and he will attempt to get this study done soon. He was placed into a knee immobilizer for his right knee. He was given a dose of decadron and we will place him on a short course of prednisone. Departure - Departure Disposition: 01 Home, Self Care Clinical Impression: Knee pain, acute Qualifiers: Laterality: bilateral Qualified Code(s): M25.561 - Pain in right knee Condition: Stable Instructions: ED Meniscal Injury Knee Poss, ED Effusion Knee Follow-Up: Andrea Avila MD [Provider Admit Priv/Credential] - [facility] [Provider Group] Prescriptions: predniSONE [Deltasone] 40 mg PO DAILY 5 Days #10 tablet Oxycodone HCl/Acetaminophen [Percocet 5-325 mg Tablet] 1 - 2 each PO Q6H PRN #14 tablet PRN Reason: pain Discharge Date/Time: 05/11/21 16:35
== END 2021-05-11 16:35 | disposition home or self-care (01) ==
LOC: ED 13:59
DX: M25.561 Pain in right knee (principal)
CPT/HCPCS: 96372; 99282; 99283; A9270

== ENCOUNTER 2021-05-13 16:29 | Emergency (ER) | payer OTHER ==
--- NOTE | 2021-05-13 17:54 | ED Physician Documentation ---
PD HPI CHEST PAIN - Stated complaint Stated Complaint: CHEST PX - Chief complaint Chief Complaint: Cardiac - History obtained from History obtained from: Patient - History of Present Illness Timing - onset: How many days ago (2 1/2) Timing - onset during: Rest. No: Exertion Timing - duration: Days Timing - details: Gradual onset, Intermittant Quality: Aching, Pain. No: Tearing Location: Substernal, Epigastric Radiation: No: Jaw, Neck Improved by: No: Rest Worsened by: Eating, Palpation (epigastric area). No: Inspiration Associated symptoms: Nausea. No: Shortness of air, Vomiting, Feeling faint / dizzy, Palpitations Similar symptoms before: Has not had sx before Recently seen: Clinic, Emergency Dept (has had knees and foot pain and being treated for inflammatory arthritis vs gout vs other process. NSAIDs initially, then steroids, with Percocet PRN but he says not taking it very often. Occ Tylenol but not regularly.) Review of Systems Constitutional: denies: Fever, Chills Nose: denies: Rhinorrhea / runny nose, Congestion Throat: denies: Sore throat Cardiac: reports: Chest pain / pressure (more so is in epigastric area, worse with eating.) Respiratory: denies: Cough GI: reports: Abdominal Pain (epigastric), Nausea. denies: Vomiting, Diarrhea, Bloody / black stool Skin: denies: Abrasion (s), Laceration (s) PD PAST MEDICAL HISTORY - Past Medical History Cardiovascular: None Respiratory: None Neuro: None Endocrine/Autoimmune: None GI: None : None HEENT: None Psych: None Musculoskeletal: None, Other (denies history of gout) Derm: None - Past Surgical History Past Surgical History: No - Present Medications Home Medications: Ambulatory Orders Medication Instructions Recorded Confirmed Naproxen 500 mg PO BID #20 tab.sr 05/09/21 Oxycodone HCl/Acetaminophen 1 each PO Q6H PRN #15 tablet 05/09/21 [Percocet 5-325 mg Tablet] Oxycodone HCl/Acetaminophen 1 - 2 each PO Q6H PRN #14 tablet 05/11/21 [Percocet 5-325 mg Tablet] predniSONE [Deltasone] 40 mg PO DAILY 5 Days #10 tablet 05/11/21 Acetaminophen [Acetaminophen Extra 500 mg PO QID PRN #50 tablet 05/13/21 Strength] Famotidine [Pepcid] 20 mg PO DAILY #20 tablet 05/13/21 Lidocaine Viscous 2% [Xylocaine 5 ml PO Q4H PRN #100 ml 05/13/21 Viscous 2%] - Allergies Allergies/Adverse Reactions: Allergies Allergy/AdvReac Type Severity Reaction Status Date / Time No Known Drug Allergies Allergy Verified 05/13/21 16:43 - Social History Does the pt smoke?: No Smoking Status: Never smoker Does the pt drink ETOH?: Yes Does the pt have substance abuse?: No - Immunizations Immunizations are current?: Yes - POLST Patient has POLST: No PD ED PE NORMAL - Vitals Vital signs reviewed: Yes - General General: Alert and oriented X 3, Well developed/nourished - HEENT HEENT: PERRL, EOMI (nonicteric) - Neck Neck: Supple, no meningeal sign, No adenopathy - Cardiac Cardiac: RRR, No murmur - Respiratory Respiratory: Clear bilaterally, Other (no chestwall tenderness. Pain not provoked with his crutches use nor arm movement. ) - Abdomen Abdomen: Normal bowel sounds, Soft, Non distended, No organomegaly, Other (tender with mild local guarding epigastric area. Not tender RUQ per se. ) - Back Back: No CVA TTP - Derm Derm: Normal color, Warm and dry - Extremities Extremities: Other (knee brace right knee, radhika wrap left knee. Has crutches. Dorsum right foot less warm/tender than on my prior exam. Still some though. ) - Neuro Neuro: Alert and oriented X 3, No motor deficit, No sensory deficit, Normal speech Results - Vitals Vitals: Vital Signs - 24 hr 05/13/21 05/13/21 16:39 18:18 Temperature 36.1 C L Heart Rate 73 90 Respiratory 16 16 Rate Blood Pressure 138/75 H 160/59 H O2 Saturation 100 100 Oxygen O2 Source Room air - EKG (time done) 16:47 Rate: Rate (enter#) (68) Rhythm: NSR [place]: Normal Intervals: Normal MS QRS: Normal Ischemia: Normal ST segments. No: ST elevation c/w ischemia, ST depression - Labs Labs: Laboratory Tests 05/13/21 18:20 Sodium 137 Potassium 3.9 Chloride 98 L Carbon Dioxide 27 Anion Gap 12.0 BUN 17 Creatinine 0.9 Estimated GFR (MDRD) 103 Glucose 163 H Calcium 9.4 Total Bilirubin 0.4 AST 307 H ALT 418 H Alkaline Phosphatase 96 Total Protein 8.1 Albumin 3.8 Globulin 4.3 H Albumin/Globulin Ratio 0.9 L Lipase 28 - Rads (name of study) chest xray Radiology: Prelim report reviewed (no acute process), See rad report PD MEDICAL DECISION MAKING - ED course Complexity details: reviewed results (lipase normal. Bili normal. Elevated AST/ALT, consider potential from steroids though typically concerned with pancreatitis from those. He has not been taking Tylenol regularly except in Percocet and has not had many of those. ), re-evaluated patient (certainly unusual polyarthritis. Seemed gout clinically with knees/effusions and dorsal right foot pains. Arthrocentesis showed WBCs with negative culture. Negative crystal exam though. Improving slowly on steroids and pain meds intermittently. Now with epigastric pain, presume gastritis.), considered differential (epigastric pain now with tenderness. Presume gastritis from recent NSAIDs/SAIDs. ), d/w patient ED course: he states PCP gave Ortho referral and pt with appt next week. Consider also Rheumatology referral for the polyathritis. I neglected to ask him the results of his STD screen from [facility] prior visit. His knee fluid culture is negative from recent ER visit though. Departure - Departure Disposition: 01 Home, Self Care Clinical Impression: Acute epigastric pain Condition: Stable Record reviewed to determine appropriate education?: Yes Instructions: ED Gastritis Prescriptions: Acetaminophen [Acetaminophen Extra Strength] 500 mg PO QID PRN #50 tablet PRN Reason: Pain Famotidine [Pepcid] 20 mg PO DAILY #20 tablet Lidocaine Viscous 2% [Xylocaine Viscous 2%] 5 ml PO Q4H PRN #100 ml PRN Reason: Pain Comments: Your symptoms are suggestive of an irritation of the stomach called gastritis. This likely results from the anti-inflammatories that you had been on. Is less likely to be related to the pain medicine narcotics. Your EKG and chest x-ray and blood tests are good. No signs of heart or lung process nor pancreatic inflammation. I would suggest either stopping the steroids or decreasing the dose in half. Be sure to take it with food. No NSAIDs. For pain I would suggest acetaminophen 4 times daily regularly for the next week or so. To that add your Percocet if needed for pain. Famotidine acid reducing medicine twice daily for the next 5 days and then once daily for another 10 days or so. Use antacid such as Maalox or Mylanta every several hours if needed for abdominal discomfort. To that you can add the lidocaine gel to help with numbing effect in the stomach. Recheck with your primary care if the upper abdominal pain is not improved over the next several days. Follow-up as well with orthopedics as planned. I transmitted prescriptions for the famotidine and lidocaine and some acetaminophen to [facility] pharmacy. Discharge Date/Time: 05/13/21 19:07
[2021-05-13] MEDS ORDERED: FAMOTIDINE 20 MG TABLET PO STA (18:09)
[2021-05-13] MEDS ORDERED: MAG HYDROX/AL HYDROX/SIMETH 30 ML UDC PO STA (18:09)
[2021-05-13] MEDS ORDERED: diphenhydrAMINE ELIXIR 25 MG/10 ML UDC PO STA (18:09)
[2021-05-13 18:19] VITALS: BP 160/59
[2021-05-13 18:44] LABS: ALBUMIN 3.8 g/dL (3.2-5.5); ALBUMIN/GLOBULIN RATIO 0.9 (1.0-2.2); BILIRUBIN,TOTAL 0.4 mg/dL (0.2-1.0); CALCIUM 9.4 mg/dL (8.5-10.3); CREATININE 0.9 mg/dL (0.6-1.2); POTASSIUM 3.9 mmol/L (3.5-5.0); TOTAL PROTEIN 8.1 g/dL (6.7-8.2)
--- NOTE | 2021-05-13 19:09 | XRAY Report ---
PROCEDURE: Chest 1 View X-Ray INDICATIONS: chest pain TECHNIQUE: One view of the chest was acquired. COMPARISON: 12/14/2020 FINDINGS: Surgical changes and devices: None. Lungs and pleura: No pleural effusions or pneumothorax. Lungs are clear. Mediastinum: Mediastinal contours appear normal. Heart size is normal. Bones and chest wall: No suspicious bony lesions. Overlying soft tissues appear unremarkable. IMPRESSION: No acute process. Reviewed by: Archie Mancini MD on 05/13/2021 7:08 PM [facility] Approved by: Archie Mancini MD on 05/13/2021 7:08 PM [facility] Station ID: [id number]
== END 2021-05-13 19:07 | disposition home or self-care (01) ==
LOC: ED 16:29
DX: R10.13 Epigastric pain (principal)
CPT/HCPCS: 36415; 71045; 80053; 83690; 93005; 99284; A9270

== ENCOUNTER 2021-05-17 07:55 | Outpatient (CLI) | payer OTHER ==
--- NOTE | 2021-05-17 16:00 | XRAY Report ---
PROCEDURE: Knee 3 View LT INDICATIONS: LEFT KNEE PAIN TECHNIQUE: 3 views of the left knee(s) were acquired. COMPARISON: None. FINDINGS: Age advanced osteoarthritic changes in both knees with joint space narrowing and marginal osteophytos is along with flattening of the articular surfaces. Small left knee joint effusion in the supine lissa r recess. No fracture or dislocation. Normal patellar height and position. IMPRESSION: Moderate osteoarthritic changes which are age advanced, bilateral but worse on the left. Reviewed by: Cyrus Herrera MD on 05/17/2021 3:58 PM PST Approved by: Cyrus Herrera MD on 05/17/2021 3:58 PM PST Station ID: [id number]
== END 2021-05-17 07:56 | disposition home or self-care (01) ==
LOC: DI.WOS 07:55
PROVIDERS: ATTEND Orthopaedic Surgery
DX: M17.0 Bilateral primary osteoarthritis of knee (principal); M02.30 Reiter's disease, unspecified site
CPT/HCPCS: 36415; 85025; 85651; 86140

== ENCOUNTER 2021-05-17 12:54 | Outpatient (CLI) | payer OTHER ==
[2021-05-17 13:17] LABS: BASOPHILS # (AUTO) 0.1 10^3/uL (0.0-0.1); BASOPHILS % (AUTO) 0.7 %; EOSINOPHILS # (AUTO) 0.3 10^3/uL (0.0-0.7); EOSINOPHILS % (AUTO) 2.6 %; HCT - HEMATOCRIT 44.9 % (42.0-52.0); HGB - HEMOGLOBIN 14.9 g/dL (14.0-18.0); MEAN CORPUSCULAR HEMOGLOBIN 28.1 pg (27.0-31.0); MEAN CORPUSCULAR HGB CONC 33.2 g/dL (32.0-36.0); MEAN CORPUSCULAR VOLUME 84.7 fL (80.0-94.0); MONOCYTES # (AUTO) 0.8 10^3/uL (0.0-1.0); MONOCYTES % (AUTO) 7.4 %; NEUTROPHILS # (AUTO) 6.4 10^3/uL (1.5-6.6); NEUTROPHILS % (AUTO) 60.2 %; PLT - PLATELET COUNT 459 10^3/uL (130-450); RED CELL DISTRIBUTION WIDTH 12.9 % (12.0-15.0); WHITE BLOOD COUNT 10.6 x10^3/uL (4.8-10.8)
== END 2021-05-17 12:55 | disposition home or self-care (01) ==
LOC: LAB 12:54
PROVIDERS: ATTEND Orthopaedic Surgery
DX: M02.30 Reiter's disease, unspecified site (principal)
CPT/HCPCS: 36415; 85025; 85651; 86140

== ENCOUNTER 2021-06-16 06:52 | Outpatient (CLI) | payer OTHER ==
--- NOTE | 2021-06-16 09:02 | MRI Report ---
PROCEDURE: Knee LT W/O INDICATIONS: RT KNEE PAIN, LEFT KNEE OSTEOCHONDRITIS DISSECANS TECHNIQUE: Noncontrast sagittal PD fast spin echo and T2 fast spin echo with fat saturation, sagittal 3-D gradie nt sequence with fat saturation; coronal T1 spin echo and PD fast spin echo with fat saturation, and axial PD fast spin echo with fat saturation through the knee. COMPARISON: Reference is made to the left knee radiograph dated May 17, 2021. Findings: Medial meniscus: No surface communication/tear. Lateral meniscus: Deficiency of the posterior horn, compatible with remote tear and/or prior meniscec armando. LIGAMENTS/TENDONS: Patellar tendon: Intact. Distal quadriceps tendon: Intact. Hoffa's fat pad: Minimal T2 hyperintense signal within the superior aspect, which may reflect edema/i mpingement. PCL: Intact. ACL: Intact. Lateral collateral ligament complex: No significant abnormality. Popliteus tendon: Intact. Medial collateral ligament: No significant abnormality.. MARROW: Contour irregularity of the lateral tibial plateau and lateral femoral condyle with subchond ral edema and deficiency of the overlying cartilage. Tricompartment osteophytosis, most prominent in the lateral compartment. CARTILAGE: Preservation of the patellofemoral and medial compartment hyaline cartilage. Muscles: No significant edema or atrophy. Joint effusion/Christensen's cyst: Small joint effusion. Thickening of the plicae. Subcutaneous soft tissues: No significant edema. IMPRESSION: 1.Deficiency of the posterior horn, lateral meniscus, compatible remote tear and/or prior meniscectom y. 2.Minimal edema in the superior infrapatellar fat, which may reflect edema and/or impingement. 3. Advanced osteoarthrosis of the lateral compartment as detailed above. 4. Small joint effusion with thickening of the plicae. Reviewed by: Johnathon Patterson MD on 06/16/2021 9:01 AM PDT Approved by: Johnathon Patterson MD on 06/16/2021 9:01 AM PDT Station ID: [id number]
--- NOTE | 2021-06-16 10:19 | MRI Report ---
PROCEDURE: Knee RT W/O INDICATIONS: RT KNEE PAIN, LEFT KNEE OSTEOCHONDRITIS DISSECANS TECHNIQUE: Noncontrast sagittal PD fast spin echo and T2 fast spin echo with fat saturation, sagittal 3-D gradie nt sequence with fat saturation; coronal T1 spin echo and PD fast spin echo with fat saturation, and axial PD fast spin echo with fat saturation through the knee. COMPARISON: Knee radiograph dated 05/17/2019 to. FINDINGS: Image quality: Excellent. Menisci: The medial meniscus is normal in size and signal. Complex oblique tear involving anterior ho rn of lateral meniscus is seen extending to both superior and inferior articulating surfaces. The men iscal root ligaments appear intact. Cruciate ligaments: The anterior and posterior cruciate ligaments appear intact. Medial structures: The medial collateral ligament appears intact. The posterior oblique ligament, s emimembranosus tendon insertions, and oblique popliteal ligament, and meniscocapsular junction appear intact. Visualized portions of the pes anserinus tendons appear normal. No abnormal bursal fluid. Lateral structures: The lateral collateral ligament, long and short heads of the biceps femoris tend on appear intact. The popliteus tendon appears normal; the popliteofibular ligament appears intact. The posterosuperior and anteroinferior popliteomeniscal fascicles appear intact. The arcuate and fa bellofibular ligaments appear intact, around the lateral inferior geniculate artery. Iliotibial band appears normal. Anterior structures: The quadriceps and patellar tendons appear intact. Patellar alignment is renee l. No femoral trochlear dysplasia or ventral trochlear prominence. No edema in the infrapatellar fa t pad. Bones and cartilage: No fracture or dislocation. Mild tricompartmental osteoarthritis is seen more p rominent in lateral femoral tibial compartment. Low-grade chondromalacia in medial femoral tibial com partment is also seen with suggestion of small osteochondral injury involving posterior weightbearing portion of lateral femoral condyle measures 4 mm in size. No other area of abnormal marrow signal. Joint space: There is moderate amount of joint fluid, no gross loose bodies. No Christensen's cyst. Renee l appearing synovial plicae are incidentally noted. IMPRESSION: 1. Mild tricompartmental osteoarthritis more prominent in the lateral femoral tibial compartment. Sma ll osteochondral injury involving posterior weightbearing portion of lateral femoral condyle. No frac ture or dislocation. Moderate joint effusion, no gross loose bodies. 2. Complex tear involving anterior horn of lateral meniscus extending to both superior and inferior a rticulating surfaces. No focal medial meniscal tear. 3. Cruciate ligaments are intact. Reviewed by: Flex Buckley MD on 06/16/2021 10:17 AM PDT Approved by: Flex Buckley MD on 06/16/2021 10:17 AM PDT Station ID: [id number]
== END 2021-06-16 06:53 | disposition home or self-care (01) ==
LOC: DI 06:52
PROVIDERS: ATTEND Orthopaedic Surgery
DX: M17.0 Bilateral primary osteoarthritis of knee (principal); M25.462 Effusion, left knee; M25.461 Effusion, right knee; S83.271A Complex tear of lateral meniscus, current injury, right knee, initial encounter; R93.6 Abnormal findings on diagnostic imaging of limbs; R93.89 Abnormal findings on diagnostic imaging of other specified body structures

== ENCOUNTER 2022-10-04 18:10 | Emergency (ER) | payer OTHER ==
--- NOTE | 2022-10-04 18:28 | ED Physician Documentation ---
History of Present Illness - Stated complaint Stated Complaint: COUGH/SOA - Chief complaint Chief Complaint: Resp - History obtained from History obtained from: Patient - Additonal information Additional information: 27-year-old gentleman has been sick since yesterday with mild shortness of breath and cough productive of yellow sputum. No fevers. No history of heart or lung problems. PD PAST MEDICAL HISTORY - Past Medical History Cardiovascular: None Respiratory: None Neuro: None Endocrine/Autoimmune: None GI: None : None HEENT: None Psych: None Musculoskeletal: None, Other (denies history of gout) Derm: None - Past Surgical History Past Surgical History: No - Present Medications Home Medications: Ambulatory Orders Medication Instructions Recorded Confirmed Naproxen 500 mg PO BID #20 tab.sr 05/09/21 Oxycodone HCl/Acetaminophen 1 each PO Q6H PRN #15 tablet 05/09/21 [Percocet 5-325 mg Tablet] Oxycodone HCl/Acetaminophen 1 - 2 each PO Q6H PRN #14 tablet 05/11/21 [Percocet 5-325 mg Tablet] predniSONE [Deltasone] 40 mg PO DAILY 5 Days #10 tablet 05/11/21 Acetaminophen [Acetaminophen Extra 500 mg PO QID PRN #50 tablet 05/13/21 Strength] Famotidine [Pepcid] 20 mg PO DAILY #20 tablet 05/13/21 Lidocaine Viscous 2% [Xylocaine 5 ml PO Q4H PRN #100 ml 05/13/21 Viscous 2%] Amoxicillin 2 tab PO TID #30 cap 10/04/22 Benzonatate [Tessalon] 200 mg PO TID PRN #20 cap 10/04/22 - Allergies Allergies/Adverse Reactions: Allergies Allergy/AdvReac Type Severity Reaction Status Date / Time No Known Drug Allergies Allergy Verified 10/04/22 18:19 - Social History Does the pt smoke?: No Smoking Status: Never smoker Does the pt drink ETOH?: Yes Does the pt have substance abuse?: No - Immunizations Immunizations are current?: Yes - POLST Patient has POLST: No PD ED PE NORMAL - Vitals Vital signs reviewed: Yes - General General: Alert and oriented X 3, No acute distress - HEENT HEENT: PERRL, EOMI - Neck Neck: Supple, no meningeal sign, No bony TTP - Cardiac Cardiac: RRR, No murmur - Respiratory Respiratory: Other (Bronchitic breath sounds at the right upper lobe, otherwise clear, nonlabored) - Abdomen Abdomen: Non tender - Derm Derm: No rash - Neuro Neuro: Alert and oriented X 3 - Psych Psych: Normal mood, Normal affect Results - Vitals Vitals: Vital Signs - 24 hr 10/04/22 18:20 Temperature 36.6 C Heart Rate 101 H Respiratory 16 Rate Blood Pressure 155/67 H O2 Saturation 97 Oxygen O2 Source Room air Departure - Departure Disposition: Home, Self Care Clinical Impression: Pneumonia Condition: Good Record reviewed to determine appropriate education?: Yes Instructions: ED Pneumonia Adult Prescriptions: Amoxicillin 2 tab PO TID #30 cap Benzonatate [Tessalon] 200 mg PO TID PRN #20 cap PRN Reason: Cough Comments: Examination today is consistent with a mild pneumonia in the right upper lobe. [place] and treatment. Return for new or worsening symptoms. [email or web address] [place]. Forms: Activity restrictions
[2022-10-04 18:39] VITALS: BP 155/67
== END 2022-10-04 18:36 | disposition home or self-care (01) ==
LOC: ED 18:10
DX: J18.9 Pneumonia, unspecified organism (principal)
CPT/HCPCS: 99281; 99283

== ENCOUNTER 2022-11-07 13:52 | Emergency (ER) | payer OTHER ==
--- NOTE | 2022-11-07 15:16 | XRAY Report ---
PROCEDURE: Wrist 4 View RT INDICATIONS: Trauma TECHNIQUE: 4 views of the wrist were acquired. COMPARISON: None. FINDINGS: Bones: No fractures or dislocations. No suspicious bony lesions. Soft tissues: No suspicious soft tissue calcifications or masses. IMPRESSION: No fracture. No osseous lesion. If symptoms and/or clinical concern for pathology persists, further a ssessment with repeat plain film radiographs (7-10 days) or advanced imaging (CT, MR, bone scan) shou ld be considered. Reviewed by: Ora Mccurdy MD, PhD on 11/07/2022 3:14 PM PDT Approved by: Ora Mccurdy MD, PhD on 11/07/2022 3:14 PM PDT Station ID: [id number]
--- NOTE | 2022-11-07 16:23 | ED Physician Documentation ---
History of Present Illness - Stated complaint Stated Complaint: RT WRIST PX - Chief complaint Chief Complaint: Ext Problem - Additonal information Additional information: Patient 27-year-old male with 2-month history of right wrist pain. Has not followed with primary care. No reported trauma. Pain worsened with movement of the thumb. Works primarily with computers. Denies stressful or repetitious activities with the hands. Review of Systems Constitutional: denies: Fever Eyes: denies: Loss of vision Ears: denies: Loss of hearing Nose: denies: Rhinorrhea / runny nose Throat: denies: Dental pain / toothache Cardiac: denies: Chest pain / pressure Respiratory: denies: Dyspnea GI: denies: Abdominal Pain : denies: Dysuria PD PAST MEDICAL HISTORY - Past Medical History Cardiovascular: None Respiratory: None Neuro: None Endocrine/Autoimmune: None GI: None : None HEENT: None Psych: None Musculoskeletal: None, Other (denies history of gout) Derm: None - Past Surgical History Past Surgical History: No - Present Medications Home Medications: Ambulatory Orders Medication Instructions Recorded Confirmed Naproxen 500 mg PO BID #20 tab.sr 05/09/21 Oxycodone HCl/Acetaminophen 1 each PO Q6H PRN #15 tablet 05/09/21 [Percocet 5-325 mg Tablet] Oxycodone HCl/Acetaminophen 1 - 2 each PO Q6H PRN #14 tablet 05/11/21 [Percocet 5-325 mg Tablet] predniSONE [Deltasone] 40 mg PO DAILY 5 Days #10 tablet 05/11/21 Acetaminophen [Acetaminophen Extra 500 mg PO QID PRN #50 tablet 05/13/21 Strength] Famotidine [Pepcid] 20 mg PO DAILY #20 tablet 05/13/21 Lidocaine Viscous 2% [Xylocaine 5 ml PO Q4H PRN #100 ml 05/13/21 Viscous 2%] Amoxicillin 2 tab PO TID #30 cap 10/04/22 Benzonatate [Tessalon] 200 mg PO TID PRN #20 cap 10/04/22 Acetaminophen [Tylenol] 650 mg PO Q6H PRN #30 tablet 11/07/22 Meloxicam [Mobic] 7.5 mg PO BID PRN #20 tablet 11/07/22 - Allergies Allergies/Adverse Reactions: Allergies Allergy/AdvReac Type Severity Reaction Status Date / Time No Known Drug Allergies Allergy Verified 11/07/22 13:58 - Social History Does the pt smoke?: No Smoking Status: Never smoker Does the pt drink ETOH?: Yes Does the pt have substance abuse?: No - Immunizations Immunizations are current?: Yes - POLST Patient has POLST: No PD ED PE NORMAL - General General: Alert and oriented X 3 - HEENT HEENT: Atraumatic - Respiratory Respiratory: No respiratory distress - Extremities Extremities: Other (Positive Paola test. Normal pulses. Normal capillary refill.) Results - Vitals Vitals: Vital Signs - 24 hr 11/07/22 11/07/22 13:58 16:49 Temperature 36.5 C 36.6 C Heart Rate 82 71 Respiratory 16 16 Rate Blood Pressure 140/75 H 144/87 H O2 Saturation 99 100 Oxygen O2 Source Room air PD Medical Decision Making - ED course Complexity details: reviewed results, d/w patient ED course: 2-month history of wrist pain. X-rays negative for fracture. Paola test positive consistent with de Quervain's tenosynovitis. Will provide thumb spica, nonsteroidal anti-inflammatory medications. Will refer to primary care and orthopedics. Clear return precautions given. Departure - Departure Disposition: 01 Home, Self Care Clinical Impression: De Quervain's disease (tenosynovitis) Follow-Up: Andrea Avila MD [Provider Admit Priv/Credential] - Prescriptions: Meloxicam [Mobic] 7.5 mg PO BID PRN #20 tablet PRN Reason: Pain Acetaminophen [Tylenol] 650 mg PO Q6H PRN #30 tablet PRN Reason: PRN PAIN &/OR FEVER Comments: Thank you for allowing us to care for you today at [facility]. Today in the emergency department you were diagnosed with de Quervain's tenosynovitis, and inflammation one of the tendons involving your wrist and thumb. Please continue to use the thumb spica provided here and by the emergency department until cleared by primary care or a hand specialist. I have included a list of available PCPs as well as contact information for Dr. Andrea jane, local located within [facility] orthopedist with whom you can follow. I have written prescriptions for medication for pain control which were sent to your preferred pharmacy, [facility]. Please take these as directed. If it anytime you have new or worsening symptoms please not hesitate to return. Forms: PCP List
[2022-11-07 16:54] VITALS: BP 144/87; O2SAT 100
== END 2022-11-07 16:56 | disposition home or self-care (01) ==
LOC: ED 13:52
DX: M65.4 Radial styloid tenosynovitis [de Quervain] (principal)
CPT/HCPCS: 99283